=== PATIENT | female | born 1990 | race Caucasian/White ===

== ENCOUNTER 2025-02-09 02:33 | Emergency (ER) | payer BC, SELFPAY ==
[2025-02-09 02:36] VITALS: BP 123/89
--- NOTE | 2025-02-09 03:08 | ED.GENMED ---
History of Present Illness
General
Chief Complaint: Cough
Source: patient and spouse
Exam Limitations: none
Time Seen by Provider: 02/09/25 02:58
Nursing documentation reviewed up to this point in time: agreed with
History of Present Illness
History of Present Illness:
The patient is a 34-year-old female who is approximately eight months , presenting with symptoms of acid reflux and acute coughing episode. The onset of reflux was during the current , characterized by gastroesophageal reflux
(GERD) symptoms and occasional nausea, which are not typically present outside of . She reports that the reflux seems to worsen at nighttime when lying down.
Tonight the patient awoke with an episode of vomiting and gagging with concern for aspiration as she developed acute severe coughing episode after vomiting. Cough has since subsided. She does admit to mild discomfort posterior throat but no
significant sore throat. No difficulty swallowing. She denies shortness of breath. There is no history of smoking or significant respiratory issues except for mild asthma, which is rarely symptomatic and typically only exacerbates with severe
colds.
The patient has experienced episodes of gagging and vomiting, particularly noticeable upon waking, which causes concern for aspiration, but she denies any recent contacts with infectious individuals.
The patient uses a wedge pillow and an acid controller (famotidine) to manage her reflux, which is generally effective.
She is 1 para 0.
EDC mid March.
She follows with nurse [facility] powder mixer in [facility].
Past History
Past History
ED Past Medical History: Asthma (Mild, rare episodes with URI), GERD and Hypothyroidism (Subclinical hypothyroidism)
ED Past Surgical History: None
Social History
Tobacco: Non-smoker
Alcohol: None
Drug: None
Personal:
Living: with family
Family History
Family History: Other (Noncontributory)
Phy Exam
Physical Exam
Physical Exam:
GENERAL: 34-year-old gravid female appears her stated age, bright and alert, pleasant, appears in no acute distress. Able to speak in full sentences. Speech is clear. No cough. No shortness of breath. is accompanying. Vital signs
within normal limits.
EYE: anicteric
NECK: Supple, nontender, no meningismus, no significant adenopathy. No JVD.
ENT: posterior pharynx is clear, no edema nor erythema, oral mucosa is moist. TM clear b/l, nares patent.
CARDIAC: Regular rate and rhythm. no murmur.
LUNGS: Clear breath sounds bilaterally, no acute respiratory distress, no wheezes/rales/rhonchi
ABDOMEN: Gravid, soft, nondistended, without focal tenderness, normoactive BS.
NEUROLOGICAL: Alert and oriented x3, no focal neuro deficits. Gait is steady.
SKIN: Warm and dry, normal color, skin intact. No rash.
MUSCULOSKELETAL: No C/C/E. peripheral pulses are full and equal b/l. No palpable tenderness.
PSYCH: Normal and appropriate interaction.
Course
Vital Signs
Initial and Last Documented VS:
Initial Vital Signs
Temp Pulse Resp BP Pulse Ox
98.3 F 102 24 123/89 96
02/09/25 02:36 02/09/25 02:36 02/09/25 02:36 02/09/25 02:36 02/09/25 02:36
Last Documented Vital Signs
Temp Pulse Resp BP Pulse Ox
98.3 F 102 24 123/89 96
02/09/25 02:36 02/09/25 02:36 02/09/25 02:36 02/09/25 02:36 02/09/25 02:36
MDM/Problems Addressed
Differential Diagnosis Includes:
The Differential Diagnosis includes, in no particular order and is not limited to:
1. Gastroesophageal reflux disease (GERD)
2. -induced gastroesophageal reflux
3. Aspiration pneumonitis
4. Chemical pneumonitis
5. Viral upper respiratory infection
6. Asthma exacerbation
7. Bacterial pneumonia
8. Hiatal hernia
9. Bronchitis
10. Silent aspiration
MDM/Problems Addressed:
Nocturnal GERD symptoms with nocturnal vomiting associated with episode of gagging and concern for potential aspiration.
No respiratory distress, patient has had complete resolution of cough, no further vomiting.
Exam is benign, no respiratory distress, lungs are clear to auscultation.
At this point there appears no evidence of aspiration.
With clear lung mireles, no respiratory distress, no persisting cough, no indication for chest x-ray.
We did discuss that she may have had very mild aspiration but generally this does not progress to pneumonia and is usually self-limiting.
Recommend she continue with famotidine, continue Zofran for as needed nausea, continue wedge pillow/elevating head of bed at nighttime.
Follow-up with PCP for recheck in continue to follow with [facility] specialist.
Return precautions discussed.
Chronic conditions affecting care:
Currently at 32 weeks
History of asthma.
*Pulse Oximetry
SaO2: 96
Oxygen Mode of Delivery: Room air
Patient hypoxic: no
*Critical Care Note
Total Time (30-74mins, 75-104mins- exclusive of procedures): Not Applicable
ED Attending Note
-
Portions of this chart may have been created with voice recognition software.� Occasional wrong word or��sound alike� substitutions may have occurred due to the inherent limitations of voice recognition software.
Discharge Plan
Departure
Patient Disposition: Home (Routine Discharge)
Date of Disposition: 02/09/25
Time of Disposition: 03:12
Patient with high blood pressure during this ER visit?: No
Condition: Good
Discharge Problem:
related GERD, Episode of vomiting with gagging
Instructions: Acid reflux and GERD during , Nausea and vomiting in adults - ED (DC)
Activity Restrictions/Additional Instructions:
Follow-up with your primary care physician for recheck especially if you develop a cough or fever over the next several days.
Follow-up with your [facility] for recheck as well.
Interventions
Interventions:
*Risk Screen - Suicide Last Done: 02/09/25 02:36
*General Assessment Last Done: 02/09/25 02:36
*Neglect/Abuse Screening Last Done: 02/09/25 02:36
*ED- Fall Risk Assessment Last Done: 02/09/25 02:36
*ED COVID-19 Vaccine History Last Done: 02/09/25 02:36
Discharge Date and Time
Print Language: GERMAN
[2025-02-09 03:25] VITALS: BP 115/82
== END 2025-02-09 03:25 | disposition home or self-care (01) ==
LOC: EMR 02:33
PROVIDERS: EMERGENCY PHYSICIAN Emergency Medicine; FAMILY PHYSICIAN Internal Medicine
DX: O99.619 Diseases of the digestive system complicating pregnancy, unspecified trimester (principal); K21.9 Gastro-esophageal reflux disease without esophagitis; O21.9 Vomiting of pregnancy, unspecified; Z3A.32 32 weeks gestation of pregnancy; J45.909 Unspecified asthma, uncomplicated; E03.9 Hypothyroidism, unspecified
CPT/HCPCS: 99282

== ENCOUNTER 2025-02-25 01:18 | Observation (INO) | payer BC, SELFPAY ==
[2025-02-25 01:33] VITALS: BP 110/68; BMI 24.7
[2025-02-25 01:35] VITALS: BP 110/68
== END 2025-02-25 02:14 | disposition home or self-care (01) ==
LOC: LDRP 01:18
PROVIDERS: ADMITTING PHYSICIAN Obstetrics & Gynecology
DX: O36.8130 Decreased fetal movements, third trimester, not applicable or unspecified (principal); Z3A.34 34 weeks gestation of pregnancy; E03.8 Other specified hypothyroidism; O99.283 Endocrine, nutritional and metabolic diseases complicating pregnancy, third trimester
CPT/HCPCS: 59025; G0378